=== PATIENT | female | born 1985 | race African-American/Black ===

== ENCOUNTER 2022-08-24 09:35 | Outpatient (CLI) | payer OTHER | END 2022-08-24 09:36 | disposition short-term general hospital (02) | LOC: EMS 09:35 | DX: R10.11 Right upper quadrant pain (principal); V43.52XA Car driver injured in collision with other type car in traffic accident, initial encounter; Y92.414 Local residential or business street as the place of occurrence of the external cause; F41.9 Anxiety disorder, unspecified | CPT/HCPCS: A0425; A0429 ==

== ENCOUNTER 2024-01-28 09:05 | Outpatient (CLI) | payer OTHER | END 2024-01-28 23:59 | disposition critical access hospital (66) | LOC: EMS 09:05 | PROVIDERS: ATTEND Emergency Medicine | DX: R41.82 Altered mental status, unspecified (principal) | CPT/HCPCS: A0425; A0429 ==

== ENCOUNTER 2024-01-28 09:23 | Emergency (ER) | payer OTHER ==
--- NOTE | 2024-01-28 09:30 | ED Physician Documentation ---
PD HPI ALTERED MENTAL STATUS - Stated complaint Stated Complaint: R HAND WEAKNESS/NOT SPEAKING - History obtained from History obtained from: Patient, EMS - History of Present Illness Timing - onset: Today Timing - details: Abrupt onset, Still present Quality / character: Other (feeling paralyzed and unable to move more talk. Can minimally nod head up/down. Seems quite scared with the symptoms. Then HIRSCH started after that by several minutes.) Associated symptoms: Headache, General weakness. No: Fever Contributing factors: No: Recent med change, Recent illness Basline status: Alert and oriented X 3, Ambulatory Similar symptoms before: No diagnosis (2-3 times prior and just waited for r esolution at home as could not move anyway.) Review of Systems Constitutional: denies: Fever, Chills Nose: denies: Rhinorrhea / runny nose, Congestion Throat: denies: Sore throat Respiratory: denies: Cough PD PAST MEDICAL HISTORY - Past Medical History Cardiovascular: None Respiratory: None Neuro: None Endocrine/Autoimmune: None - Present Medications Home Medications: Ambulatory Orders Medication Instructions Recorded Confirmed lamoTRIgine [LaMICtal] 25 mg PO DAILY #30 tablet 01/28/24 - Allergies Allergies/Adverse Reactions: Allergies Allergy/AdvReac Type Severity Reaction Status Date / Time Penicillins Allergy Unknown Unknown Verified 01/28/24 10:21 PD ED PE NORMAL - Vitals Vital signs reviewed: Yes - General General: Alert and oriented X 3, Well developed/nourished - HEENT HEENT: Atraumatic, Pharynx benign - Neck Neck: Supple, no meningeal sign, No adenopathy - Cardiac Cardiac: RRR, No murmur - Respiratory Respiratory: No respiratory distress, Clear bilaterally - Derm Derm: Normal color, Warm and dry - Neuro Neuro: Other (initially not speaking and seems terarful and scared about it. Nods very slightly yes/no. Not moving at all below the neck, but has generally increased muscle tone as if rigid more than flaccid. ) Results - Vitals Vitals: Vital Signs - 24 hr 01/28/24 01/28/24 01/28/24 09:31 10:08 10:30 Temperature 36.5 C Heart Rate 75 84 82 Respiratory 15 17 17 Rate Blood Pressure 132/92 H 133/86 H 133/86 H O2 Saturation 100 100 100 01/28/24 01/28/24 01/28/24 11:00 11:30 12:00 Temperature Heart Rate 89 86 76 Respiratory 19 20 12 Rate Blood Pressure 135/74 H 119/82 H 126/89 H O2 Saturation 100 100 100 01/28/24 01/28/24 01/28/24 12:42 13:00 13:32 Temperature Heart Rate 90 90 88 Respiratory 17 15 15 Rate Blood Pressure 122/96 H 107/78 114/84 H O2 Saturation 100 100 100 Oxygen O2 Source Room air - Labs Labs: Laboratory Tests 01/28/24 01/28/24 01/28/24 09:35 09:48 09:48 WBC 5.3 RBC 4.94 Hgb 11.7 L Hct 40.5 MCV 82.0 MCH 23.7 L MCHC 28.9 L RDW 16.7 H Plt Count 209 MPV 11.0 H Neut # (Auto) 2.8 Lymph # (Auto) 2.1 [place] # (Auto) 0.4 Eos # (Auto) 0.0 Baso # (Auto) 0.0 Absolute Nucleated RBC 0.00 Nucleated RBC % 0.0 Manual Slide Review Indicated WBC Morphology NORMAL APPEARANCE Platelet Estimate NORMAL (130-450,000) Platelet Morphology NORMAL APPEARANCE RBC Morph Micro Appear 1+ HYPOCHROMASIA Sodium 140 Potassium 4.2 Chloride 110 Carbon Dioxide 22 Anion Gap 8.0 BUN 10 Creatinine 0.9 Estimated GFR (MDRD) 85 L Glucose 96 POC Whole Bld Glucose 93 Calcium 9.3 Magnesium 1.9 Total Bilirubin 0.3 AST 14 ALT 10 Alkaline Phosphatase 78 Total Protein 7.1 Albumin 4.3 Globulin 2.8 Albumin/Globulin Ratio 1.5 Lipase 19 PD Medical Decision Making - ED course Complexity details: re-evaluated patient (she is subsequently doing well. Was given IV fluids, toradol, Zofran as intended migraine cocktail. HIRSCH is mostly gone after that. Normal neuro function. Conc=versant. ), considered differential (neuro deficit followed by HIRSCH, with now slow resolution of neuro symptoms (unable to talk nor move). Has had similar without Dx few times in the past, about every 6 months to a year. Presume complicated migraine. ), d/w patient Reviewed Lab Results: head CT and angio is normal. ED course: Seems likely complicated migraine, with normal imaging testing here and improvement with IV meds for migraine. Consider migraine meds. Problem is the quick onset of paralysis feeling prior to HIRSCH, so not an opportunity to take abortive meds such as tyrptans. Alternative is migraine prophylactic meds such as topamox, lamotrigine, elavil, but her HAs have been so infrequent that this is not great option either. Departure - Departure Disposition: 01 Home, Self Care Clinical Impression: Unable to talk, Complicated migraine Condition: Stable Record reviewed to determine appropriate education?: Yes Instructions: ED Headache Migraine Prescriptions: lamoTRIgine [LaMICtal] 25 mg PO DAILY #30 tablet Comments: This sounds like it complex migraine. Your head CT scan showed normal blood flow and no signs of tumors or swelling. Your blood tests are good without any electrolyte or blood sugar problems. Typically for migraine type headache, would think of having the medication on hand that you could take when the migraine starts in order to avert it. However given how quickly your start with the are or preceding symptoms being the inability to move, it does raise the idea of being on a daily prophylactic medicine to try to reduce them. Countering this is the infrequency that you have so whether being on a daily medicine in order to reduce or prevent them when they are so infrequent is a choice. I did write a prescription for a low-dose migraine type medicine that is used to be prophylactic that you take every day. Follow-up with your primary care for further discussion on this. Your choice on whether to start them right now or just follow-up with your primary care. Stay well-hydrated otherwise. Tylenol ibuprofen if needed for headache. Forms: PCP List Discharge Date/Time: 01/28/24 13:34
[2024-01-28] MEDS: SODIUM CHLORIDE 0.9% 1,000 ML IV STA (09:41)
[2024-01-28] MEDS: KETOROLAC 15 MG/ML VIAL IVP STA (09:41)
[2024-01-28] MEDS: ONDANSETRON 4 MG/2 ML VIAL IVP STA (09:41)
[2024-01-28 09:45] VITALS: O2SAT 100
[2024-01-28 09:52] LABS: BASOPHILS % (AUTO) 0.4 %; EOSINOPHILS % (AUTO) 0.4 %; HCT - HEMATOCRIT 40.5 % (37.0-47.0); HGB - HEMOGLOBIN 11.7 g/dL (12.0-16.0); LYMPHOCYTES # (AUTO) 2.1 10^3/uL (1.5-3.5); LYMPHOCYTES % (AUTO) 39.1 %; MEAN CORPUSCULAR HEMOGLOBIN 23.7 pg (27.0-31.0); MEAN CORPUSCULAR HGB CONC 28.9 g/dL (32.0-36.0); MONOCYTES # (AUTO) 0.4 10^3/uL (0.0-1.0); MONOCYTES % (AUTO) 6.8 %; NEUTROPHILS # (AUTO) 2.8 10^3/uL (1.5-6.6); NEUTROPHILS % (AUTO) 53.1 %; PLT - PLATELET COUNT 209 10^3/uL (130-450); RED BLOOD COUNT 4.94 10^6/uL (4.20-5.40); RED CELL DISTRIBUTION WIDTH 16.7 % (12.0-15.0); WHITE BLOOD COUNT 5.3 x10^3/uL (4.8-10.8)
[2024-01-28] MEDS ORDERED: iohexoL-300 100 ML VIAL ONE (09:52)
[2024-01-28 10:00] LABS: SLIDE REVIEW? Indicated
[2024-01-28 10:06] LABS: MAGNESIUM 1.9 mg/dL (1.7-2.3)
[2024-01-28 10:12] LABS: ALBUMIN 4.3 g/dL (3.2-5.5); ALBUMIN/GLOBULIN RATIO 1.5 (1.0-2.2); BILIRUBIN,TOTAL 0.3 mg/dL (0.2-1.0); CALCIUM 9.3 mg/dL (8.5-10.3); CREATININE 0.9 mg/dL (0.6-1.3); POTASSIUM 4.2 mmol/L (3.5-4.5); TOTAL PROTEIN 7.1 g/dL (6.4-8.9)
[2024-01-28 10:40] LABS: PLATELET ESTIMATE, MANUAL NORMAL (130-450,000) (NORMAL); PLATELET MORPHOLOGY NORMAL APPEARANCE (NORMAL)
[2024-01-28 10:41] LABS: RBC MORPHOLOGY (MULTIPLE) 1+ HYPOCHROMASIA (NORMAL); WBC MORPHOLOGY (MULTIPLE) NORMAL APPEARANCE (NORMAL)
--- NOTE | 2024-01-28 12:13 | CT Report ---
PROCEDURE: Head WO INDICATIONS: headache and altered MS TECHNIQUE: Noncontrast 4.5 mm thick angled axial sections acquired from the foramen magnum to the vertex. For r adiation dose reduction, the following was used: automated exposure control, adjustment of mA and/or kV according to patient size. COMPARISON: None. FINDINGS: Image quality: Diagnostic. CSF spaces: Basal cisterns are patent. No extra-axial fluid collections. Ventricles are normal in size and shape. Brain: No midline shift. No intracranial masses or hemorrhage. Vega-white matter interface is norm al. Skull and face: Calvarium and visualized facial bones are intact, without suspicious lesions. Sinuses: Visualized sinuses and mastoids are clear. IMPRESSION: No acute intracranial pathology. No mass or mass effect. Reviewed by: Jm Laws MD on 01/28/2024 12:11 PM PDT Approved by: Jm Laws MD on 01/28/2024 12:11 PM PDT Station ID: [id number]
--- NOTE | 2024-01-28 12:16 | CT Report ---
PROCEDURE: Angio Head/Neck INDICATIONS: headache and altered MS TECHNIQUE: After the administration of intravenous contrast, 1 mm thick sections acquired from the aortic arch t hrough the [place]. 3-dimensional koaoxmb-xscdcfqdy-wyucsopwfu (MIP) and/or volume renderin g reformats were acquired of the central intracranial vasculature and neck separately. For radiation dose reduction, the following was used: automated exposure control, adjustment of mA and/or kV acco rding to patient size. CONTRAST: Omni 300 80ml COMPARISON: CT head from same day. FINDINGS: Image quality: Diagnostic. HEAD CT: CSF Spaces: Basal cisterns are patent. No extra-axial fluid collections. Ventricles are normal in size and shape. Brain: No significant abnormality is seen for scanning technique. Skull and face: Calvarium and visualized facial bones appear intact, without suspicious lesions. Sinuses: Visualized sinuses and mastoids are clear. HEAD CT ANGIOGRAPHY: Anterior circulation: Intracranial internal carotid arteries are normal in size and flow. The flow within the paired anterior cerebral arteries is normal and symmetric. The flow within the middle cer ebral arteries is normal and symmetric. The anterior communicating artery is seen. No aneurysms are seen. Posterior circulation: Visualized portions of the vertebral arteries demonstrate normal caliber, and join to form a normal appearing basilar artery. Flow within the posterior cerebral arteries is norm al and symmetric. No aneurysms are seen. NECK CT ANGIOGRAPHY: Carotid system: The great vessels demonstrate a conventional anatomy as they arise from the aortic a rch. The origins of the common carotid arteries appear patent. The common carotid arteries demonstr ate normal caliber and courses. The bifurcation regions are both widely patent. The internal caroti d arteries demonstrate normal calibers and courses. Posterior circulation: The origins of the vertebral arteries both appear widely patent. The more mc perior extracranial portions of both vertebral arteries also demonstrate normal courses and calibers. They join to form a normal appearing basilar artery. Soft tissues: Visualized neck soft tissues demonstrate no suspicious abnormalities. Bones: No suspicious bony lesions. Visualized cervical spine appears normally aligned. IMPRESSION: No significant intracranial arterial abnormality is seen. No significant abnormality is seen within the arteries of the neck. The estimate of stenosis included in the report of the imaging study was calculated using the NASCET method Reviewed by: Jm Laws MD on 01/28/2024 12:15 PM PDT Approved by: Jm Laws MD on 01/28/2024 12:15 PM PDT Station ID: [id number]
[2024-01-28] MEDS: MECLIZINE 12.5 MG TABLET PO STA (12:21)
[2024-01-28 13:41] VITALS: BP 114/84
[2024-01-28] MEDS: iohexoL-300 100 ML VIAL IVP ONE (14:25)
== END 2024-01-28 13:34 | disposition home or self-care (01) ==
LOC: EDUNIT# → ED 09:23
DX: G43.109 Migraine with aura, not intractable, without status migrainosus (principal); R47.9 Unspecified speech disturbances
CPT/HCPCS: 36415; 80053; 83690; 83735; 85025; 96374; 99284